=== PATIENT | female | born 1980 | race Caucasian/White ===

== ENCOUNTER 2021-02-04 12:31 | Emergency (ER) | payer BC ==
[~2021-02-04] VITALS: Ht 172.7 cm; Wt 86.2 kg
[2021-02-04] MEDS ORDERED: HYDROCODONE/APAP 10MG-325MG TAB ONE (14:06)
[2021-02-04] MEDS ORDERED: HYDROCODONE/APAP 10MG-325MG TAB PO ONE (14:30)
== END 2021-02-04 14:15 | disposition home or self-care (01) ==
LOC: ER 12:41
DX: L02.212 Cutaneous abscess of back [any part, except buttock and flank] (principal)
CPT/HCPCS: 99284